=== PATIENT | female | born 1960 | race Caucasian/White ===

== ENCOUNTER 2022-11-15 14:45 | Emergency (ER) | payer OTHER ==
--- OUTSIDE RECORDS SUMMARY | 2022-11-15 14:48 | XMS REPORT | Continuity of Care Document ---
:1960 Author Organization [facility] t Address [address] [facility] [address] [place] [address] Care Team Providers Name Role Phone Referred, Self Attending Clinician Unavailable NELLY DUKE Admitting Clinician Unavailable Payers Payer Name Policy Type Policy Number Effective Date Expiration Date S ource Problems This patient has no known problems. Allergies, Adverse Reactions, Alerts This patient has no known allergies or adverse reactions. Medications This patient has no known medications. Procedures This patient has no known procedures. Encounters Start End Encounter Admission Attending Care Care Encounter Source Date/Time Date/Time Type Type Clinicians Facility Department ID 2021-02-10 2021-02-10 Outpatient EL Referred, [facility] [id number] [facility] 12:00:00 12:00:00 [facility] 13 [facility] Results This patient has no known results.
--- NOTE | 2022-11-15 15:50 | RAD REPORT ---
EXAM DESCRIPTION: Perico Holman And Lat (2 Views)11/15/2022 3:30 pm CLINICAL HISTORY: Cough COMPARISON: 2019 FINDINGS: Mild bilateral interstitial opacities unchanged appear chronic Lungs appear clear of acute infiltrate. The heart is borderline enlarged IMPRESSION: No acute abnormalities displayed
--- NOTE | 2022-11-15 16:18 | EDPHYS ---
Physician Documentation [facility] Name: Lou Reynoso Age: 62 yrs Sex: Female : 1960 Arrival Date: 11/15/2022 Time: 14:45 Bed DIS1 Private MD: ED Physician Jeremy Dent HPI: 11/15 15:11 This 62 yrs old Female presents to ER via Ambulatory with complaints of Cough, r/o ms3 pneumonia. 15:11 62-year-old female with past medical history of hypertension, pneumonia, rheumatoid ms3 arthritis, Sjogren's presents for cough. In by her primary care physician, Silvana Sawyer and so she was wheezing in her bilateral lungs and diagnosed with bronchitis. Patient was given Symbicort and a Medrol Dosepak at that time. Patient states she began her Medrol Dosepak on October 22 with mild improvement. Patient saw her water supervisor on November 08 for started azithromycin due to her lung sounds. Patient states she finished the azithromycin on November 11 and the cough has not improved. Patient states she is having moderate discomfort with deep breaths that she rates a 6/10. Patient denies pedal edema, fevers, chills, nausea, vomiting, shortness of breath. Historical: - Allergies: 15:00 Codeine; ld1 15:00 Hydrocodone-Acetaminophen; ld1 - PMHx: 15:00 Hypertension; Pneumonia; Rheumatoid Arthritis; ld1 - Immunization history:: Adult Immunizations up to date, Client reports receiving the 2nd dose of the Covid vaccine. - Social history:: Smoking status: Patient denies any tobacco usage or history of. Patient/guardian denies using alcohol. ROS: 15:11 Constitutional: Negative for fever, and chills. Neck: Negative for injury, pain, and ms3 swelling, Cardiovascular: Negative for chest pain, and palpitations. 15:11 Abdomen/GI: Negative for abdominal pain, nausea, vomiting, diarrhea, and constipation, MS/Extremity: Negative for injury and deformity, Skin: Negative for injury, rash, and discoloration. 15:11 Respiratory: Positive for cough. 15:11 All other systems are negative. Exam: 15:11 Constitutional: This is a well developed, well nourished patient who is awake, alert, ms3 and in no acute distress. Head/Face: Normocephalic, atraumatic. Neck: Trachea midline, no cervical lymphadenopathy. Supple, full range of motion without nuchal rigidity, or vertebral point tenderness. No Meningismus. Chest/axilla: Normal chest wall appearance and motion. Nontender with no deformity. Cardiovascular: Regular rate and rhythm with a normal S1 and S2. No gallops, murmurs, or rubs. Normal PMI, no JVD. No pulse deficits. Abdomen/GI: Soft, non-tender, with normal bowel sounds. No distension or tympany. No guarding or rebound. No evidence of tenderness throughout. Skin: Warm, dry with normal turgor. Normal color with no rashes, no lesions, and no evidence of cellulitis. MS/ Extremity: Pulses equal, no cyanosis. Neurovascular intact. Full, normal range of motion. 15:11 Respiratory: the patient does not display signs of respiratory distress, Respirations: normal, Breath sounds: are clear throughout. Vital Signs: 15:01 BP 159 / 104; Pulse 76; Resp 18; Temp 98.1(O); Pulse Ox 98% on R/A; Weight 82.55 kg; ld1 Height 5 ft. 4 in. ; Pain 6/10; 15:01 Body Mass Index 31.24 (82.55 kg, 162.56 cm) ld1 15:01 Pain Scale: Adult ld1 MDM: 15:10 Patient medically screened. ms3 15:11 Differential Diagnosis: Bronchitis Upper Respiratory Infection Pneumonia. ms3 16:20 Data reviewed: vital signs, nurses notes, radiologic studies, plain films, and as a ms3 result, I will discharge patient. Care significantly affected by the following chronic conditions: Hypertension, Pneumonia, Rheumatoid Arthritis. Counseling: I had a detailed discussion with the patient and/or guardian regarding: the historical points, exam findings, and any diagnostic results supporting the discharge/admit diagnosis, radiology results, the need for outpatient follow up, to return to the emergency department if symptoms worsen or persist or if there are any questions or concerns that arise at home. Special discussion: I discussed with the patient/guardian in detail that at this point there is no indication for admission to the hospital. It is understood, however, that if the symptoms persist or worsen the patient needs to return immediately for re-evaluation. ED course: Discussed x-ray results with patient. Patient to follow-up with primary care physician in 2 to 3 days. Patient understands and agrees with plan. All questions were answered. Return precautions discussed include worsening symptoms, or any other concerns. 11/15 15:10 Order name: Chest Pa And Lat (2 Views) XRAY; Complete Time: 16:13 ms3 Administered Medications: No medications were administered Disposition Summary: 11/15/22 16:18 Discharge Ordered Location: Home ms3 Condition: Stable ms3 Diagnosis - Cough ms3 Followup: ms3 - With: Private Physician - When: 2 - 3 days - Reason: Re-evaluation by your physician Discharge Instructions: - Discharge Summary Sheet ms3 - Cough, Adult ms3 Forms: - Medication Reconciliation Form ms3 - Thank You Letter ms3 - Antibiotic Education ms3 - Prescription Opioid Use ms3 - [email or web address] ms3 Prescriptions: - benzonatate 200 mg Oral Capsule - take 1 capsule by ORAL route 3 times per day as needed; 20 capsule; Refills: 0, ms3 Product Selection Permitted Signatures: Dispatcher [employer] EDMO Jeremy Dent, DO ms3 Bev Dent, RN RN ld1
--- NOTE | 2022-11-15 16:18 | ER ---
Nurse's Notes [facility] Name: Lou Reynoso Age: 62 yrs Sex: Female : 1960 Arrival Date: 11/15/2022 Time: 14:45 Bed DIS1 Private MD: Diagnosis: Cough Presentation: 11/15 14:59 Chief complaint:. Coronavirus screen: At this time, the client does not indicate any ld1 symptoms associated with coronavirus-19. Ebola Screen: No symptoms or risks identified at this time. Risk Assessment: Do you want to hurt yourself or someone else? Patient reports no desire to harm self or others. Onset of symptoms was November 15, 2022 at 15:00. 14:59 Method Of Arrival: Ambulatory ld1 14:59 Acuity: LEOLA 3 ld1 15:01 Initial Sepsis Screen: Does the patient meet any 2 criteria? No. Patient's initial ld1 sepsis screen is negative. Does the patient have a suspected source of infection? No. Patient's initial sepsis screen is negative. 15:01 Chief complaint: Patient states: Cough, pain with coughing since 10/12/2022. ld1 Triage Assessment: 15:00 General: Appears in no apparent distress. comfortable, Behavior is calm, cooperative, ld1 appropriate for age. Pain: Denies pain. EENT: No signs and/or symptoms were reported regarding the EENT system. Neuro: Level of Consciousness is awake, alert, obeys commands, Oriented to person, place, time, situation. Cardiovascular: Capillary refill < 3 seconds Patient's skin is warm and dry. Respiratory: Airway is patent Respiratory effort is even, unlabored. GI: Abdomen is round non-distended. : No signs and/or symptoms were reported regarding the genitourinary system. Derm: No signs and/or symptoms reported regarding the dermatologic system. Musculoskeletal: No signs and/or symptoms reported regarding the musculoskeletal system. Historical: - Allergies: 15:00 Codeine; ld1 15:00 Hydrocodone-Acetaminophen; ld1 - PMHx: 15:00 Hypertension; Pneumonia; Rheumatoid Arthritis; ld1 - Immunization history:: Adult Immunizations up to date, Client reports receiving the 2nd dose of the Covid vaccine. - Social history:: Smoking status: Patient denies any tobacco usage or history of. Patient/guardian denies using alcohol. Screenin:45 [facility] ED Fall Risk Assessment (Adult) History of falling in the last 3 months, ss including since admission No falls in past 3 months (0 pts). Abuse screen: Denies threats or abuse. Denies injuries from another. Nutritional screening: No deficits noted. Tuberculosis screening: Never had TB. Assessment: 16:45 General: Appears in no apparent distress. comfortable. Neuro: Level of Consciousness is ss awake, alert, obeys commands. Cardiovascular: Capillary refill < 3 seconds is brisk in bilateral fingers. Respiratory: Airway is patent Respiratory effort is even, unlabored, Respiratory pattern is regular, symmetrical. Respiratory: Reports cough that is. Derm: Skin is intact, is healthy with good turgor, Skin is pink, warm \T\ dry. normal. Musculoskeletal: Circulation, motion, and sensation intact. Range of motion: intact in all extremities, Swelling absent. Vital Signs: 15:01 BP 159 / 104; Pulse 76; Resp 18; Temp 98.1(O); Pulse Ox 98% on R/A; Weight 82.55 kg; ld1 Height 5 ft. 4 in. ; Pain 6/10; 15:01 Body Mass Index 31.24 (82.55 kg, 162.56 cm) ld1 15:01 Pain Scale: Adult ld1 ED Course: 14:48 Patient arrived in ED. am2 14:49 Jeremy Dent DO is Attending Physician. ms3 15:00 Triage completed. ld1 15:00 Arm band placed on right wrist. ld1 15:32 Chest Pa And Lat (2 Views) XRAY In Process Unspecified. EDMS 16:45 Patient has correct armband on for positive identification. ss 16:45 No provider procedures requiring assistance completed. Patient did not have IV access ss during this emergency room visit. Administered Medications: No medications were administered Medication: 16:45 VIS not applicable for this client. ss Outcome: 16:18 Discharge ordered by . ms3 16:44 Discharged to home ambulatory, with family. ss 16:44 Condition: improved 16:44 Discharge instructions given to patient, Instructed on discharge instructions, follow up and referral plans. medication usage, Demonstrated understanding of instructions, follow-up care, medications, Prescriptions given X 1. 16:45 Patient left the ED. ss Signatures: Dispatcher [facility] EDBlanca Chan, RN RN ss Pao Potts am2 Jeremy Dent, DO MCNALLY ms3 Bev Dent, LAITH RN ld1
[2022-11-15 17:33] VITALS: BP 159/104; TEMP 98.1; O2SAT 98
== END 2022-11-15 16:45 | disposition home or self-care (01) ==
LOC: ER 14:45
DX: R05.9 Cough, unspecified (principal); I10 Essential (primary) hypertension; Z88.5 Allergy status to narcotic agent
CPT/HCPCS: 71046; 99283

== ENCOUNTER 2024-06-26 14:37 | Emergency (ER) | payer OTHER ==
--- OUTSIDE RECORDS SUMMARY | 2024-06-26 14:42 | XMS REPORT | Continuity of Care Document ---
Author Name Unknown Address [address] [facility] [address] [place] [address] [facility]connect Address [address] 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 Name Role Phone CASE LEVI Attending Clinician Lex juarez Referred, Self Attending Clinician Unavailable NELLY DUKE Admitting Clinician Unavailable Payers Payer Name Policy Type Policy Number Effective Date Expirati on Date Source Encounters Start Date/Time End Date/Time Encounter Type Admission Type Attending Clinicians Care Facility Care Department Encounter ID Source 2024-06-02 15:02:20 2024-06-02 15:02:20 Outpatient SFA [id number] [id number] Erasto Nelson 2023-08-22 12:31:00 2023-08-22 23:59:00 Outpatient CASE LEVI MHSE MHSE [id number] 01 [facility] 2021-02-10 12:00:00 2021-02-10 12:00:00 Outpatient EL Referred, Self [facility] RADHA [id number] 13 [facility]
[2024-06-26] MEDS ORDERED: FENTANYL CITR 100 MCG/2 ML ONE (16:00)
[2024-06-26] MEDS ORDERED: ONDANSETRON 4 MG (ODT) TAB ONE (16:01)
--- NOTE | 2024-06-26 16:46 | RAD REPORT ---
EXAM: XR Wrist Left 3 View HISTORY: [facility] MAIN PAIN Bed Name: 15 COMPARISON: None TECHNIQUE: 3 views of the left wrist. FINDINGS: Comminuted and displaced distal radius metaphysis fracture with mild volar apex angulation. . Joint alignment is maintained. Soft tissue swelling about the wrist. Izow-ie-ogflhrkh degenerative changes about the wrist and thumb base. IMPRESSION: Comminuted and displaced distal radius metaphysis fracture as above.
--- NOTE | 2024-06-26 17:01 | RAD REPORT ---
EXAMINATION: XR Lumbar Spine 3 Views CLINICAL INDICATION: Female, 64 years old. [facility] MAIN PAIN Bed Name: 15 TECHNIQUE: AP, lateral, focused lateral lumbosacral views of the lumbar spine were obtained. COMPARISON: No prior exam. FINDINGS: For purposes of this dictation, it is assumed that there are 5 lumbar type vertebral bodies. ALIGNMENT: Grade 1 anterolisthesis of L5 over S1, measuring up to 1.2 cm. BONES: Superior endplate compression deformity at L3, with some fracture lucencies anteriorly. Other vertebral bodies are normal in height. No aggressive osseous lesions. Multilevel degenerative changes with facet remodeling most pronounced at L4-5 and L5-S1. DISCS: Advanced disc height loss at L5-S1. IMPRESSION: Superior endplate compression deformity at L3, could be of acute nature. Correlate with level focal p ain.
--- NOTE | 2024-06-26 17:13 | ER ---
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 Fell to ground. L wrist pain since. Coronavirus screen: Client denies travel out of the [place] in the last 14 days. At this time, the client does not indicate any symptoms associated with coronavirus-19. Ebola Screen: Patient denies travel to an Ebola-affected area in the 21 days before illness onset. Initial Sepsis Screen: Does the patient meet any 2 criteria? No. Patient's initial sepsis screen is negative. Does the patient have a suspected source of infection? No. Patient's initial sepsis screen is negative. Risk Assessment: Do you want to hurt yourself or someone else? Patient reports no desire to harm self or others. Onset of symptoms was June 26, 2024. 14:53 Method Of Arrival: Ambulatory ll1 14:53 Acuity: LEOLA 3 ll1 Historical: - Allergies: 14:52 Codeine; ll1 14:52 Hydrocodone-Acetaminophen; ll1 - PMHx: 14:52 Hypertension; Pneumonia; Rheumatoid Arthritis; ll1 - PSHx: 14:52 hysterectomy; ll1 - Immunization history:: Adult Immunizations up to date. - Infectious Disease History:: Denies. - Social history:: Smoking status: Patient denies any tobacco usage or history of. Screenin:13 [facility] ED Fall Risk Assessment (Adult) History of falling in the last 3 months, kj2 including since admission Yes- single mechanical fall (1 pt) Confusion or Disorientation No (0 pts) Intoxicated or Sedated No (0 pts) Impaired Gait No (0 pts) Mobility Assist Device Used No (0 pt) Altered Elimination No (0 pt) Score/Fall Risk Level 0 - 2 = Low Risk Maintained a safe environment, Hourly rounding (assess needs \T\ fall precautionary measures) done. Abuse screen: Denies threats or abuse. Denies injuries from another. Nutritional screening: No deficits noted. Tuberculosis screening: No symptoms or risk factors identified. Assessment: 15:45 Reassessment: Patient appears in no apparent distress at this time. Patient and/or kj2 family updated on plan of care and expected duration. Pain level reassessed. Patient is alert, oriented x 3, equal unlabored respirations, skin warm/dry/pink. report received. General: Appears in no apparent distress. uncomfortable, Behavior is calm, cooperative. Pain: Complains of pain in left arm and left wrist Pain currently is 7 out of 10 on a pain scale. Neuro: Level of Consciousness is awake, alert, obeys commands, Oriented to person, place, time, situation. Cardiovascular: Patient's skin is warm and dry. Respiratory: Airway is patent Respiratory effort is even, unlabored. GI: No signs and/or symptoms were reported involving the gastrointestinal system. : No signs and/or symptoms were reported regarding the genitourinary system. 16:45 Reassessment: Patient appears in no apparent distress at this time. Patient and/or kj2 family updated on plan of care and expected duration. Pain level reassessed. Patient is alert, oriented x 3, equal unlabored respirations, skin warm/dry/pink. 17:45 Reassessment: Patient appears in no apparent distress at this time. Patient and/or kj2 family updated on plan of care and expected duration. Pain level reassessed. Patient is alert, oriented x 3, equal unlabored respirations, skin warm/dry/pink. Vital Signs: 14:53 BP 154 / 85; Pulse 56; Resp 17; Temp 97.3; Pulse Ox 98% ; Weight 78.02 kg; Height 5 ft. ll1 4 in. ; Pain 9/10; 15:45 BP 176 / 100; Pulse 53; Resp 20; Pulse Ox 99% on R/A; kj2 16:45 BP 136 / 78; Pulse 58; Resp 18; Pulse Ox 100% ; kj2 17:45 BP 132 / 60; Pulse 58; Resp 18; Pulse Ox 99% on R/A; kj2 18:53 BP 142 / 80; Pulse 60; Resp 18; Temp 98; Pulse Ox 100% on R/A; kj2 14:53 Body Mass Index 29.52 (78.02 kg, 162.56 cm) ll1 14:53 Pain Scale: Adult ll1 ED Course: 14:40 Patient arrived in ED. mr 14:44 Britni Pack PA-C is PHCP. sb4 14:44 Golden Cee MD is Attending Physician. sb4 14:54 Triage completed. ll1 14:54 Arm band placed on Patient placed in an exam room, on a stretcher. ll1 15:37 Lumbar Spine (3 Views) XRAY In Process Unspecified. EDMS 15:37 Wrist Left (3 View) XRAY In Process Unspecified. EDMS 15:54 Cassia Knight, RN is Primary Nurse. iw 16:13 Patient has correct armband on for positive identification. Bed in low position. Call kj2 light in reach. Adult w/ patient. 17:11 Jeff Slaughter MD is Referral Physician. sb4 17:11 Toney Quigley MD is Referral Physician. sb4 17:12 Mic Johnson MD is Referral Physician. sb4 18:56 Assist provider with fracture care Immobilized with preformed splint. kj2 18:57 Provided Education on: PAIN MANAGEMENT. kj2 18:57 Patient did not have IV access during this emergency room visit. kj2 Administered Medications: 16:09 Drug: Ondansetron Oral Disintegrating Tablet Oral Disintegrating Tablet 4 mg PO once kj2 Route: PO; 18:55 Follow up: Response: No adverse reaction kj2 16:10 Drug: fentaNYL (PF) IM 50 mcg IM once Route: IM; Site: right deltoid; kj2 18:56 Follow up: Response: No adverse reaction kj2 17:21 Drug: Ketorolac IM 30 mg IM once Route: IM; Site: left deltoid; kj2 18:55 Follow up: Response: No adverse reaction kj2 Medication: 18:55 VIS not applicable for this client. kj2 Outcome: 17:12 Discharge ordered by . sb4 18:56 Discharged to home ambulatory, with family, kj2 18:56 Condition: stable 18:56 Discharge instructions given to patient, Instructed on discharge instructions, follow up and referral plans. Demonstrated understanding of instructions, follow-up care, medications, Prescriptions given X 2, 18:58 Patient left the ED. kj2 Signatures: Dispatcher [employer] EDCT Annette Gabriel, Reg Reg mr Cassia Knight RN RN iw Bill Masterson RN RN ll1 Britni Pack PA-C PA-C sb4 Elissa North, RN RN kj2
--- NOTE | 2024-06-26 17:13 | EDPHYS ---
Physician Documentation [facility] Name: Lou Reynoso Age: 64 yrs Sex: Female : 1960 Arrival Date: 06/26/2024 Time: 14:37 Bed 15 Private MD: ED Physician Golden Cee HPI: 06/26 15:06 This 64 yrs old Female presents to ER via Ambulatory with complaints of Back Pain, Left sb4 wrist injury. 15:06 patient states that she was helping her mother off of the ground earlier today, when sb4 she felt a pop in her lower back, fell backwards, and hit her left wrist on something. is complaining of pain to the left wrist and lower back, worse in the wrist. denies any numbness of tingling in her hand or legs. denies any prior injuries. Historical: - Allergies: 14:52 Codeine; ll1 14:52 Hydrocodone-Acetaminophen; ll1 - PMHx: 14:52 Hypertension; Pneumonia; Rheumatoid Arthritis; ll1 - PSHx: 14:52 hysterectomy; ll1 - Immunization history:: Adult Immunizations up to date. - Infectious Disease History:: Denies. - Social history:: Smoking status: Patient denies any tobacco usage or history of. ROS: 15:06 Constitutional: Negative for fever, chills, and weight loss, sb4 15:06 Back: Positive for injury or acute deformity, pain at rest, pain with movement, of the low back area, 15:06 MS/extremity: Positive for injury or acute deformity, decreased range of motion, pain, swelling, tenderness, of the left wrist, 15:06 All other systems are negative, Exam: 15:08 Head/Face: Normocephalic, atraumatic. Eyes: Extra-ocular motions intact. Periorbital sb4 areas with no swelling, redness, or edema. Neck: Supple, full range of motion without nuchal rigidity, or vertebral point tenderness. Respiratory: No increased work of breathing, no retractions or nasal flaring. Back: No spinal tenderness. No costovertebral tenderness. Full range of motion. Skin: Warm, dry with normal turgor. Normal color with no rashes, no lesions, and no evidence of cellulitis. 15:08 Constitutional: The patient appears alert, awake, uncomfortable, 15:08 Musculoskeletal/extremity: Joints: the left wrist displays limited range of motion, pain at rest, painful range of motion, swelling, tenderness, 17:54 Neuro: Exam negative for focal neuro deficits, motor deficits, sensory deficits, sb4 altered mental status, confusion, Vital Signs: 14:53 BP 154 / 85; Pulse 56; Resp 17; Temp 97.3; Pulse Ox 98% ; Weight 78.02 kg; Height 5 ft. ll1 4 in. ; Pain 9/10; 15:45 BP 176 / 100; Pulse 53; Resp 20; Pulse Ox 99% on R/A; kj2 16:45 BP 136 / 78; Pulse 58; Resp 18; Pulse Ox 100% ; kj2 17:45 BP 132 / 60; Pulse 58; Resp 18; Pulse Ox 99% on R/A; kj2 18:53 BP 142 / 80; Pulse 60; Resp 18; Temp 98; Pulse Ox 100% on R/A; kj2 14:53 Body Mass Index 29.52 (78.02 kg, 162.56 cm) ll1 14:53 Pain Scale: Adult ll1 MDM: 14:46 Medical Screening Exam initiated sb4 15:31 Independent interpretation of the following test(s) in the Emergency Department X-Ray: sb4 My interpretation is My interpretation of the left wrist x-ray images is acute impacted distal radius fracture. 17:09 Data reviewed: vital signs, nurses notes, radiologic studies, I have discussed the sb4 patient's presentation/case with the attending Emergency Department Physician; and as a result, I will discharge patient. 17:10 ED course: no focal pain/vertebral tenderness, doubt acute L3 fracture, more likely sb4 sprain/strain. will immobilize wrist with sugar tong splint and advise close ortho follow up. patient understands. 06/26 15:06 Order name: Lumbar Spine (3 Views) XRAY; Complete Time: 17:02 sb4 06/26 15:06 Order name: Wrist Left (3 View) XRAY; Complete Time: 16:47 sb4 06/26 15:06 Order name: Ice pack; Complete Time: 16:00 sb4 06/26 17:09 Order name: Splint - Sugar Tong - Forearm; Complete Time: 18:49 sb4 Administered Medications: 16:09 Drug: Ondansetron Oral Disintegrating Tablet Oral Disintegrating Tablet 4 mg PO once kj2 Route: PO; 18:55 Follow up: Response: No adverse reaction kj2 16:10 Drug: fentaNYL (PF) IM 50 mcg IM once Route: IM; Site: right deltoid; kj2 18:56 Follow up: Response: No adverse reaction kj2 17:21 Drug: Ketorolac IM 30 mg IM once Route: IM; Site: left deltoid; kj2 18:55 Follow up: Response: No adverse reaction kj2 Disposition: 20:53 Co-signature as Attending Physician, Golden Cee MD I reviewed the patient's care rt provided by the Advanced Practice Provider and agree with the diagnosis and treatment plan. Disposition Summary: 06/26/24 17:12 Discharge Ordered Notes: Location: Home sb4 Problem: new sb4 Symptoms: have improved sb4 Condition: Stable sb4 Diagnosis - Communited and displaced distal radius fracture, left sb4 Followup: sb4 - With: Jeff Slaughter MD - When: 2 - 3 days - Reason: Further diagnostic work-up, Recheck today's complaints, Re-evaluation by your physician Followup: sb4 - With: Toney Quigley MD - When: 2 - 3 days - Reason: Further diagnostic work-up, Recheck today's complaints, Re-evaluation by your physician Followup: sb4 - With: Mic Johnson MD - When: 2 - 3 days - Reason: Further diagnostic work-up, Recheck today's complaints, Re-evaluation by your physician Discharge Instructions: - Discharge Summary Sheet sb4 - Radial Fracture sb4 - Wrist Fracture Treated With ORIF sb4 Forms: - Prescription Opioid Use sb4 - Patient Portal Instructions sb4 - Leadership Thank You Letter sb4 Prescriptions: - Ibuprofen 800 mg Oral Tablet - take 1 tablet ORAL route every 8 hours As needed take with food; 30 tablet; sb4 Refills: 0, Product Selection Permitted - Tramadol 50 mg Oral tablet - take 2 tablet ORAL route every 8 hours as needed; 24 tablet; Refills: 0, sb4 Product Selection Permitted Signatures: Dispatcher [employer] Bill Trejo RN RN ll1 Britni Pack PA-C PA-C sb4 Golden Cee MD MD rt Elissa North RN RN kj2 Corrections: (The following items were deleted from the chart) 15:07 15:07 Lumbar Spine 3 Views+RAD.[email or web address].[email or web address] ordered. EDMS EDMS 15:07 15:07 Wrist Left 3 View+RAD.[email or web address].[email or web address] ordered. EDMS EDMS
[2024-06-26] MEDS ORDERED: KETOROLAC 30 MG/ML INJ ONE (17:17)
[2024-06-26 19:07] VITALS: BP 142/80; TEMP 98; O2SAT 100
== END 2024-06-26 18:58 | disposition home or self-care (01) ==
LOC: ER 14:37
PROC: 2W3DX1Z Immobilization of Left Lower Arm using Splint (ICD-10-PCS; principal; 2024-06-26)
DX: S52.502A Unspecified fracture of the lower end of left radius, initial encounter for closed fracture (principal); M54.50 Low back pain, unspecified; W18.30XA Fall on same level, unspecified, initial encounter
CPT/HCPCS: 72100; 73110; 96372; 99284; 29125; Q0162; J3010

== ENCOUNTER 2024-07-08 07:29 | Day surgery (SDC) | payer OTHER ==
[2024-07-07 13:10] LABS: Absolute Eosinophils 0.1 K/uL (0-0.5); Absolute Lymphocytes (CBC) 1.5 K/uL (0.7-4.9); Absolute Monocytes 0.9 K/uL (0.1-1.3); Absolute Neutrophil 3.1 K/uL (1.8-8.0); Basophils % 0.5 % (0-1.3); Hematocrit 39.9 % (36.0-45.0); Hemoglobin 13.8 g/dL (12.0-15.0); Lymphocytes % 26.9 % (15.3-44.8); MCH 32.1 pg (27.0-35.0); MCHC 34.5 g/dL (32.0-36.0); MPV 7.8 fL (7.6-11.3); Monocytes % 16.4 % (3.3-12.3); Neutrophils % 55.2 % (41.7-73.7); Nucleated Red Blood Cells % 0.1 % (0-0); Platelets 311 thou/uL (152-406); RBC Red Blood Cell Count 4.29 M/uL (3.86-4.86); Red Cell Distribution Width 13.3 % (12.1-15.2)
--- NOTE | 2024-07-07 16:15 | EKG ---
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
[2024-07-08] MEDS ORDERED: LIDOCAINE 1% MPF 5 ML VIAL ONE ×3 (07:43→08:49)
[2024-07-08] MEDS ORDERED: MIDAZOLAM HCL 2 MG/2 ML INJ ONE (07:43)
[2024-07-08] MEDS ORDERED: EPINEPHRINE 1 MG/ML VIAL ONE (07:43)
[2024-07-08] MEDS ORDERED: dexAMETHasone 10 MG/ML VIAL ONE (07:43)
[2024-07-08] MEDS ORDERED: FENTANYL CITR 100 MCG/2 ML ONE (07:43)
[2024-07-08] MEDS ORDERED: BUPIVACAINE 0.5% PF 10 ML VIAL ONE (07:44)
[2024-07-08] MEDS: Ringers Lactate 1,000 ML IV ONE (07:56)
[2024-07-08] MEDS ORDERED: propofoL 200 MG/20 ML VIAL IV ONE (08:50)
[2024-07-08] MEDS ORDERED: ONDANSETRON 4 MG/2 ML VIAL ONE (08:50)
[2024-07-08] MEDS ORDERED: GLYCOPYRROLATE 0.2 MG/ML SYR ONE (09:38)
[2024-07-08] MEDS: CEFAZOLIN SODIUM 1 GM/VIAL ONE (09:49)
[2024-07-08] MEDS ORDERED: dexAMETHasone 4 MG/ML VIAL ONE (10:13)
[2024-07-08 11:43] VITALS: BP 140/87; TEMP 97; O2SAT 100
--- NOTE | 2024-07-08 11:48 | RAD REPORT ---
EXAM: Fluoroscopy use, Fluoroscopy <1 Hour HISTORY: [facility] MAIN ORIF LT DISTAL RADIUS COMPARISON: None FINDINGS: A total of 12 images were sent to PACS, during a fluoroscopically guided distal radius ORIF . No radiologist was involved in protocoling or performance of the study, and no radiologist was present for the duration of the procedure. No interpretation of the saved images will be provided. Total fluoroscopy time: 0.9 minutes. IMPRESSION: Documentation of fluoroscopy use as above.
--- NOTE | 2024-07-08 20:55 | OP ---
Date of Procedure: 07/08/2024 Surgeon: Toney Quigley MD Preoperative Diagnosis: Left distal radius intra-articular three-part fracture with 3 intra-articula r fragments. Postoperative Diagnosis: Left distal radius intra-articular three-part fracture with 3 intra-articul ar fragments. Procedure: Open reduction and internal fixation of left distal radius intra-articular fracture with fixation of 3 fragments. Estimated Blood Loss: Less than 10 cc. Complications: There were no complications. Specimens: No pathology specimen sent. Indication For Operation: Ms. Reynoso is a 64-year-old female who unfortunately injured her left upper extremity. She was seen and examined in my office, where she was neurovascularly intact. Had no op en injury, but x-rays demonstrated a comminuted complex and displaced distal radius fracture. Risks, benefits, and alternatives of different methods of treating this, including closed management have b een discussed with the patient. She states she understands things as presented and at this time opts for open reduction and internal fixation of distal radius, and understands the risks associated with that, and agrees to proceed. Description Of Procedure: The patient was taken to the operating room, placed in supine position. G eneral anesthesia was easily obtained by the anesthesia staff. Following this, well-padded tournique t was placed on the superior left arm. Left upper extremity was then prepped and draped in usual joselyn rile fashion for the procedure. Following this, the arm was then elevated, but not exsanguinated and tourniquet was raised. A standard volar approach of Tamir was used and taken down carefully through the skin only with a zigzag across the distal radius crease. The flexor carpi radialis was encounte red and used as a landmark. It was gently moved to the side and the underlying sheath was then explo ited. The tendon and muscle belly of the flexor pollicis longus were then moved ulnarward to protect the median nerve, and an incision was made at the pronator quadratus, which was divided in its midsu bstance and then freed from the underlying flap distal radius and fracture site. After th is, a combination of traction, manual reduction techniques, and [place] elevator were then used to redu ce the fracture and the Acumed 2 volar radius plating set was then applied in standard fashion with g reat care being taken to avoid any intra-articular placement of pegs and maintain reduction as well a s position of the plate. After this, it was gently irrigated and the skin was closed using nylon sut ures. The patient was placed in a very well-padded sterile dressing with a volar wrist splint, awake deena, and taken to recovery room in good condition. There were no complications. /DENVER Voice ID: [id number] Report ID: [id number]
== END 2024-07-08 12:33 | disposition home or self-care (01) ==
LOC: OR 07:29
PROVIDERS: ATTEND Orthopaedic Surgery
PROC: 0PSJ04Z Reposition Left Radius with Internal Fixation Device, Open Approach (ICD-10-PCS; principal; 2024-07-08 09:45)
DX: S52.572D Other intraarticular fracture of lower end of left radius, subsequent encounter for closed fracture with routine healing (principal)
CPT/HCPCS: 93005; 85025; 80048; 36415; 25609; J2704; J1100 ×2; J2003 ×3; J2250; J3010; J0171; J2405; J7120; J0690; C1713 ×3; C1889; 76000